=== PATIENT | male | born 1995 | race Caucasian/White ===

== ENCOUNTER 2017-01-18 20:46 | Emergency (ER) | payer OTHER ==
[2017-01-18 20:53] VITALS: TEMP 98; BMI 27.2
[2017-01-18] MEDS ORDERED: SODIUM CHLORIDE 1,000 ML IV STA ×2 (21:37→22:51)
[2017-01-18] MEDS ORDERED: ONDANSETRON 4 MG/2 ML VIAL IVPUSH ONE (21:38)
--- NOTE | 2017-01-18 21:41 | PDOC ---
History of Present Illness - General Chief Complaint: Vomiting/Diarrhea Stated Complaint: DIARRHEA, VOMITING Time Seen by Provider: 01/18/17 21:16 History Source: Patient - History of Present Illness Timing/Duration: reports: constant Past History - Past Medical History Allergies/Adverse Reactions: Allergies Allergy/AdvReac Type Severity Reaction Status Date / Time No Known Allergies Allergy Verified 01/18/17 20:53 Home Medications: Ambulatory Orders NK [No Known Home Medication] 01/18/17 Other medical history: denies - Psycho/Social/Smoking Cessation Hx Suicidal Ideation: No Smoking History: Current every day smoker Number of Cigarettes Smoked Daily: 1 Information on smoking cessation initiated: No Hx Alcohol Use: Yes Review of Systems - Review of Systems Constitutional: Yes: Fever ABD/GI: Yes: Diarrhea, Nausea, Vomiting. No: Abdominal cramping *Physical Exam - Vital Signs Last Vital Signs Temp Pulse Resp BP Pulse Ox 98 F 114 H 20 153/84 99 01/18/17 20:51 01/18/17 20:51 01/18/17 20:51 01/18/17 20:51 01/18/17 20:51 - Physical Exam General Appearance: Yes: Appropriately Dressed. No: Apparent Distress HEENT: positive: Normal Voice Neck: positive: Supple Respiratory/Chest: negative: Respiratory Distress Gastrointestinal/Abdominal: positive: Normal Bowel Sounds, Soft. negative: Tender, Distended, Guarding, Rebound Integumentary: positive: Dry, Warm Neurologic: positive: Fully Oriented, Alert, Normal Mood/Affect ED Treatment Course - LABORATORY CBC & Chemistry Diagram: 01/18/17 21:50 01/18/17 23:45 Medical Decision Making - Medical Decision Making 01/18/17 21:38 22-year-old male, denies any past medical history, here with nausea vomiting and diarrhea for 2 days. Patient reports numerous episodes of nonbloody, watery diarrhea and 2 episodes of nausea/vomiting. Also complaining of subjective fever and chills. No abdominal pain. States he ate sushi prior to onset of symptoms. Denies sick contacts or recent travel. Patient in NAD and tachy w/ benign abd/ M/l viral, no e/o appy. Will check labs to r/o infxn and check electrolytes. IVF and antiemetic in progress 01/19/17 01:13 01/19/17 01:13 Repeat creatinine 1.4 s/p IVF, down from 2.2. HR improved to 88. Patient reports feeling better and able to judy po. Stable for discharge with supportive treatment. Reasons to return discussed with patient 01/19/17 01:29 *DC/Admit/Observation/Transfer Diagnosis at time of Disposition: Viral gastroenteritis, LEATHA (acute kidney injury) - Discharge Dispostion Disposition: HOME Condition at time of disposition: Improved - Referrals Referrals: STAFF,NOT ON [Primary Care Provider] - - Patient Instructions Printed Discharge Instructions: DI for Viral Gastroenteritis -- Adult Additional Instructions: Maintain adequate hydration, for the remainder of your symptoms, maintain a bland diet such as bananas, rice, applesauce and toast. These foods can help make your stools firmer and also replete certainly essential electrolytes. Please follow up with your primary care physician as needed. Return to ED for worsening of symptoms
[2017-01-18] MEDS ORDERED: ONDANSETRON 4 MG/2 ML VIAL ONE (21:46)
[2017-01-18 22:00] LABS: BASOPHIL 0.2 % (0-2.0); EOSINOPHIL 0.3 % (0-4.5); MCH 29.3 pg (25.7-33.7); MCHC 34.3 g/dl (32.0-35.9); MEAN CELL VOLUME 85.5 fl (80-96); MEAN PLT VOLUME 8.4 fl (7.5-11.1); NEUTROPHILS 82.2 % (42.8-82.8); PLATELET COUNT 247 K/MM3 (134-434); RDW 13.6 % (11.9-15.9); WHITE BLOOD COUNT 8.4 K/mm3 (4.0-10.0)
[2017-01-18 22:28] LABS: ALBUMIN 4.9 g/dl (3.4-5.0); CALCIUM 9.2 mg/dL (8.5-10.1); CREATININE 2.2 mg/dL (0.7-1.3)
[2017-01-18 22:38] LABS: BILIRUBIN,TOTAL 0.4 mg/dL (0.2-1.0); TOT PROT 9.3 g/dl (6.4-8.2)
[2017-01-19 00:25] LABS: ALBUMIN 3.6 g/dl (3.4-5.0); ALK PHOS 87 U/L (45-117); ANION GAP 9 (8-16); BILIRUBIN,TOTAL 0.3 mg/dL (0.2-1.0); CALCIUM 7.6 mg/dL (8.5-10.1); CO2 24 mmol/L (21-32); CREATININE 1.4 mg/dL (0.7-1.3); GLUCOSE,RANDOM 95 mg/dL (74-106); SGOT/AST 20 U/L (15-37); SGPT/ALT 58 U/L (12-78); TOT PROT 6.8 g/dl (6.4-8.2)
[2017-01-19 01:28] VITALS: BP 130/62; PULSE 88
== END 2017-01-19 01:29 | disposition home or self-care (01) ==
LOC: JER 20:46
PROC: 3E033GC Introduction of Other Therapeutic Substance into Peripheral Vein, Percutaneous Approach (ICD-10-PCS; principal; 2017-01-18)
PROC: 3E0337Z Introduction of Electrolytic and Water Balance Substance into Peripheral Vein, Percutaneous Approach (ICD-10-PCS; 2017-01-18)
DX: A08.4 Viral intestinal infection, unspecified (principal); B34.9 Viral infection, unspecified; S37.009A Unspecified injury of unspecified kidney, initial encounter
CPT/HCPCS: 36415; 80053; 85025; 96361; 96374; 99281-25